=== PATIENT | male | born 1965 | race Caucasian/White ===

== ENCOUNTER → 2023-04-19 | Outpatient (CLI) | payer BC ==
--- NOTE | 2023-04-19 18:32 | CA ---
Exercise Stress Test Report Name: Eduard Lucero Exam Date: 04/19/2023 09:22 Exam Location: [place] Stress Ht (in): Wt (lb): BSA: Ordering Phys: David Nicolas MD Referring Phys: David Nicolas MD Technologist: Chastity Marin Age: 58 Gender: M : 1965 Procedure CPT: Indications: ESSENTIAL HTN ICD-10 Codes: Patient History: Shortness of breath and palpitations. Medications: Meds past 24 hrs: Pretest Chest Pain: STRESS TEST Memo Protocol Exercise Duration (min:sec): 08:[address] Depressions (mm): Angina Score: Ryan Score: Resting HR (bpm): 65 Peak HR (bpm): 139 Resting BP (mmHg): 163 / 87 Peak BP (mmHg): 217 / 67 MPHR: 162 Target HR: 138 % MPHR: 86 METS: 9.7 Total Dose: Peak Dose: Atropine: Double Product: 03294 BP Response: Stress Termination: Reached target heart rate Stress Symptoms: No chest pain or symptoms Stress Summary: ECG ANALYSIS Resting ECG: Stress ECG: CONCLUSIONS Excellent exercise tolerance Mild EKG changes in response to exercise Dr. René Del Castillo MD (Electronically Signed) Final Date: 19 April 2023 18:29
== END | disposition home or self-care (01) ==
LOC: RADNMMAIN 08:36
PROVIDERS: ATTEND Family Medicine
DX: I10 Essential (primary) hypertension (principal); R00.2 Palpitations; R06.02 Shortness of breath
CPT/HCPCS: 93017

== ENCOUNTER → 2024-09-28 | Outpatient (CLI) | payer BC ==
[2024-09-28 10:47] LABS: Basophils # (A) 0.04 X 10*3/uL (0.00-0.10); Basophils % (A) 0.6 %; Eosinophils # (A) 0.37 X 10*3/uL (0.04-0.35); Eosinophils % (A) 5.2 %; HCT 42.8 % (39.6-50.0); HGB 14.4 g/dL (13.0-17.0); Immature Grans, Automated 0.30 %; Lymphocytes # (A) 2.06 X 10*3/uL (0.90-5.00); Lymphocytes % (A) 29.2 %; MCH 29.9 pg (27.0-32.0); MCHC 33.6 g/dL (32.0-37.0); MCV 88.8 FL (80.0-97.0); Monocytes # (A) 0.56 X 10*3/uL (0.20-1.00); Monocytes % (A) 7.9 %; NRBC Per 100 WBC 0 X 10*3/uL (0.00-0.01); Neutrophils # (A) 4.00 X 10*3/uL (1.80-7.70); Neutrophils % (A) 56.8 %; Platelet Count 248 X 10*3/uL (140-440); RBC 4.82 X 10*6/uL (4.40-5.60); RDW 12.7 % (11.5-14.5); WBC 7.05 X 10*3/uL (4.50-10.00)
[2024-09-28 11:04] LABS: Anion Gap 14.20 mmol/L (4.00-12.00); BUN/Creat Ratio 28.60 Ratio (12.00-20.00); Blood Urea Nitrogen 28.6 mg/dL (9.0-27.0); Carbon Dioxide 17.8 mmol/L (21.6-31.8); Chloride 107 mmol/L (96-109); Cholesterol 164.00 mg/dL (0.00-200.00); Glucose 103 mg/dL (70-110); HDL Cholesterol 62.30 mg/dL (40.00-60.00); LDL Cholesterol,Calculated 86.8 mg/dL (0.0-131.0); Magnesium 1.8 mg/dL (1.5-2.4); Potassium 4.4 mmol/L (3.5-5.5); Rheumatoid Factor, Qnt <15 IU/mL (0-15); Sodium 139 mmol/L (135-145); Triglycerides 74.40 mg/dL (0.00-149.00); VLDL Calculation 14.88 mg/dL (5.00-40.00)
[2024-09-28 11:05] LABS: ALT 31 U/L (10-49); AST 22 U/L (14-35); Albumin 4.8 g/dL (3.8-4.9); Albumin/Globulin Ratio 2.40 Ratio (1.60-3.17); Alkaline Phosphatase 34 U/L (41-126); Calcium 9.4 mg/dL (8.7-10.3); Globulin 2.0 g/dL (1.6-3.3); PSA Annual Screen 0.596 ng/mL (0.000-4.000); Total Protein 6.8 g/dL (6.2-8.2)
[2024-09-28 11:09] LABS: Hepatitis C IgG Antibody Nonreactive (Nonreactive)
[2024-09-28 13:05] LABS: Cyclic Citrull Pep IgG Unit <1.5 U/mL (<=3.9)
== END | disposition home or self-care (01) ==
LOC: LABWHC1 07:30
PROVIDERS: ATTEND Internal Medicine
DX: Z12.5 Encounter for screening for malignant neoplasm of prostate (principal); Z11.59 Encounter for screening for other viral diseases; E11.9 Type 2 diabetes mellitus without complications; M19.049 Primary osteoarthritis, unspecified hand
CPT/HCPCS: 86803; 80061; 80053; 84443; 83735; 85025; 86431; 86038; 86200; 83036; 36415; G0103